=== PATIENT | female | born 1985 | race Caucasian/White ===

== ENCOUNTER 2018-04-06 22:36 | Emergency (ER) | payer OTHER ==
[~2018-04-06] VITALS: Ht 160 cm; Wt 54.4 kg
[2018-04-07] MEDS ORDERED: KETO10TA2 PO (04:32)
[2018-04-07] MEDS ORDERED: CEPHALEXIN500 M1 PO (04:32)
== END 2018-04-07 04:53 | disposition home or self-care (01) ==
LOC: ER 22:36
DX: N61.0 Mastitis without abscess (principal)